=== PATIENT | male | born 1935 | race African-American/Black ===

== ENCOUNTER → 2017-11-04 | Outpatient (CLI) | payer MEDICARE, BC ==
[2017-11-04] MEDS: IODIXANOL LOCM 100 ML BTL (09:08)
[2017-11-04] MEDS: SOD CHLORIDE 0.9% 100 ML (09:08)
== END | disposition home or self-care (01) ==
LOC: C/S 08:40
DX: R51 Headache (principal)
CPT/HCPCS: 70470